=== PATIENT | male | born 1955 | race African-American/Black ===

== ENCOUNTER 2017-08-24 15:52 | Inpatient (IN) | payer OTHER ==
[2017-08-24 17:11] LABS: Absolute Lymphocytes (CBC) 0.8 K/uL (0.7-4.9); Absolute Monocytes 0.9 K/uL (0.1-1.3); Absolute Neutrophil 8.6 K/uL (1.8-8.0); Eosinophils % 0.5 % (0-4.4); Hematocrit 43.2 % (39.6-49.0); Lymphocytes % 7.6 % (15.3-44.8); MCH 28.2 pg (27.0-35.0); MCV 84.6 fL (80-100); MPV 10.4 fL (7.6-11.3); Monocytes % 9.1 % (3.3-12.3); RBC Red Blood Cell Count 5.11 M/uL (4.33-5.43)
[2017-08-24 17:21] LABS: Protime INR 1.05
[2017-08-24 17:22] LABS: Potassium 3.9 mEq/L (3.6-5.0)
--- NOTE | 2017-08-24 17:29 | RAD REPORT ---
EXAM DESCRIPTION: RAD - Chest Single View - 08/24/2017 5:23 pm CLINICAL HISTORY: Chest pain. COMPARISON: 07/28/2017 FINDINGS: Portable technique limits examination quality. The lungs are grossly clear. The heart is normal in size. No displaced fractures.Right-sided PICC mejia e has tip in the SVC. IMPRESSION: No acute intrathoracic process suspected.
[2017-08-24 17:30] LABS: Albumin 3.8 g/dL (3.2-5.5); Bilirubin Direct 0.2 mg/dL (0-0.2); Bilirubin Total 0.9 mg/dL (0.3-1.2); C-Reactive Protein 13.1 mg/L (<10.0); Protein, Total 7.6 g/dL (6.0-8.3)
[2017-08-24] MEDS ORDERED: NA CHLORIDE 0.9% 1,000 ML ONE (17:38)
[2017-08-24] MEDS ORDERED: PIPERACILLIN-TAZO-DEXTROSE,ISO 3.375 GM/50 ML BAG ONE (17:38)
[2017-08-24] MEDS ORDERED: ACETAMINOPHEN 500 MG TAB ONE (17:38)
--- NOTE | 2017-08-24 18:02 | P.HP ---
Certification for Inpatient Patient admitted to: Inpatient With expected LOS: >2 Midnights Patient will require the following post-hospital care: None Practitioner: I am a practitioner with admitting privileges, knowledge of patient current condition, hospital course, and medical plan of care. Services: Services provided to patient in accordance with Admission requirements found in Title 42 Section 412.3 of the Code of Federal Regulations Patient History Date of Service: 08/24/17 Primary Care Provider: Dr Jc - Surgery Reason for admission: Fever History of Present Illness: This is a 61-year-old male with significant past medical history of diabetes, high blood pressure, cholesterol, chronic diabetic foot ulcers who presented to the ED complaining of having some fever and chills at home. Patient stated that he was at the [facility] when he was told that he needs to go get an MRI of his foot but started feeling unwell and thus decided to come to the ER. In the ER patient was found to have a fever and tachycardia and thus was referred for an admission for sepsis workup. Patient states that at home he has been having fever noted temperature of 101.6. Of note patient has been on IV vancomycin for osteomylitis for total of 12 weeks. Initially he was at [facility] for 6 weeks and then was discharged home with another 6 weeks of IV antibiotics. Patient has been having some coughing as well along with phlegm production which is clear in color. Aside from fever and chills patient does not have any other associated symptoms at this time. Allergies No Known Allergies Allergy (Verified 05/26/17 09:08) Home Medications: Metformin HCl [Glucophage*] 2 tab PO BID 08/03/13 Allopurinol [Zyloprim*] 1 tab PO DAILY 04/19/15 Amlodipine/Valsartan [Exforge 10-320 mg Tablet] 1 tab PO DAILY 04/19/15 Atorvastatin Calcium [Lipitor*] 1 tab PO DAILY 04/19/15 - Past Medical/Surgical History Diabetic: Yes -: Diabetes -: HTN -: High Cholesterol - Social History Alcohol use: Yes Review of Systems General: As per HPI Physical Examination - Physical Exam General: Alert, In no apparent distress, Oriented x3 HEENT: Atraumatic, PERRLA, Mucous membr. moist/pink, EOMI, Sclerae nonicteric Neck: Supple, 2+ carotid pulse no bruit, No LAD, Without JVD or thyroid abnormality Respiratory: Normal air movement, Inspiratory wheezes, Rhonchi/gurgles Cardiovascular: Regular rate/rhythm, Normal S1 S2 Gastrointestinal: Normal bowel sounds, No tenderness Musculoskeletal: Erythema Integumentary: Diabetic ulcer (Left Foot and 2nd Toe and Right foot ) Neurological: Normal speech, Normal strength at 5/5 x4 extr, Normal tone, Normal affect Lymphatics: No axilla or inguinal lymphadenopathy - Studies Laboratory Data (last 24 hrs) 08/24/17 14:45: PT 12.4, INR 1.05, APTT 25.6 08/24/17 14:45: WBC 10.5, Hgb 14.4, Hct 43.2, Plt Count 159 08/24/17 14:45: B-Natriuretic Peptide 44 08/24/17 14:45: Sodium 135, Potassium 3.9, BUN 19, Creatinine 1.30 H, Glucose 137 H, Total Bilirubin 0.9, AST 61 H, ALT 35, Alkaline Phosphatase 99, Lipase 28 Assessment and Plan - Problems (Diagnosis) (1) Sepsis Current Visit: Yes Status: Acute Plan: Sepsis Most likely 2.2 to PICC line infection Vs Osteomylitis vs PNA -Started on IV vanc and zosyn -Culture pending -ID consulted. Await Reccs -Wound care for Ulcers -Will replace PICC line Qualifiers: Sepsis type: sepsis due to unspecified organism Qualified Code(s): A41.9 - Sepsis, unspecified organism (2) Osteomyelitis Current Visit: No Status: Chronic Plan: Osteomylitis of the BL foot -Has been on IV vanc for 12 weeks now. -Will repeat the MRI today -Continue IV abx. (3) Diabetic ulcer of left great toe Current Visit: No Status: Chronic (4) Diabetic ulcer of right great toe Current Visit: No Status: Chronic (5) Diabetes mellitus type 2 Current Visit: No Status: Chronic (6) Essential hypertension Current Visit: No Status: Chronic (7) KINGS (acute kidney injury) Current Visit: Yes Status: Acute Plan: Most Likely 2/2 to dehydration vs IV Vanc. -IV fluids at this time. Discharge Plan: Home Plan to discharge in: 48 Hours - Advance Directives Does patient have a Living Will: No Does patient have a Durable POA for Healthcare: No - Code Status/Comfort Care Code Status Assessed: Yes Critical Care: No
--- NOTE | 2017-08-24 19:47 | ER ---
Nurse's Notes [facility] Name: Magnus Richards Age: 61 yrs Sex: Male : 1955 Arrival Date: 08/24/2017 Time: 15:56 Bed 8 Private MD: Diagnosis: Acute upper respiratory infection, unspecified;Fever, unspecified Presentation: 08/24 16:11 Presenting complaint: Patient states: wound care sent me over here, they think im ch septic or my picc line is infected. last night I didn't feel good, today i have been very weak, vomiting everything i eat, and just not feeling well. Transition of care: patient was not received from another setting of care. Onset of symptoms was August 23, 2017 at 15:00. Care prior to arrival: None. 16:11 Method Of Arrival: Wheelchair 16:11 Acuity: FARIDA 3 ch Historical: - Allergies: 16:14 tegaderm; ch - Home Meds: 16:14 allopurinol 100 mg Oral tab 1 tab once daily [Active]; Exforge 10-160 mg oral tab 1 tab ch once daily [Active]; atorvastatin 10 mg oral tab 1 tab once daily [Active]; metformin 500 mg Oral tab 1 tab 2 times per day [Active]; - PMHx: 16:14 Diabetes - NIDDM; chronic wounds; Hypertension; Gout; ch - PSHx: 16:14 foot, knee; ch - Immunization history:: Adult Immunizations up to date. - Social history:: Smoking status: Patient/guardian denies using tobacco. Screenin:04 Abuse screen: Denies threats or abuse. Denies injuries from another. Nutritional hb screening: No deficits noted. Tuberculosis screening: No symptoms or risk factors identified. Fall Risk None identified. Assessment: 16:45 General: Appears in no apparent distress. Behavior is calm, cooperative. Pain: Denies hb pain. Neuro: Level of Consciousness is awake, alert, obeys commands, Oriented to person, place, time, situation, Pupils are PERRLA. Cardiovascular: Heart tones S1 S2 present Capillary refill < 3 seconds Patient's skin is warm and dry. Respiratory: Airway is patent Trachea midline Respiratory effort is even, unlabored, Respiratory pattern is regular, symmetrical, Breath sounds are clear bilaterally. GI: Abdomen is non-distended, Bowel sounds present X 4 quads. Abd is soft and non tender X 4 quads. Reports nausea, vomiting. : No signs and/or symptoms were reported regarding the genitourinary system. EENT: No signs and/or symptoms were reported regarding the EENT system. Derm: No signs and/or symptoms reported regarding the dermatologic system. Skin temperature is warm Wound noted Other: chronic diabetic ulcers to bilateral soles of feet. Musculoskeletal: Range of motion: intact in all extremities. 17:45 Reassessment: Patient appears in no apparent distress at this time. No changes from hb previously documented assessment. Patient and/or family updated on plan of care and expected duration. Pain level reassessed. Patient is alert, oriented x 3, equal unlabored respirations, skin warm/dry/pink. 18:38 Reassessment: Patient appears in no apparent distress at this time. No changes from hb previously documented assessment. Patient and/or family updated on plan of care and expected duration. Pain level reassessed. Patient is alert, oriented x 3, equal unlabored respirations, skin warm/dry/pink. 19:00 General: Appears in no apparent distress. Behavior is calm, cooperative. Pain: Denies ea pain. Neuro: Level of Consciousness is awake, alert, obeys commands, Oriented to person, place, time, situation. Cardiovascular: Heart tones S1 S2 present Patient's skin is warm and dry. Respiratory: Airway is patent Respiratory effort is even, unlabored, Respiratory pattern is regular, symmetrical, Breath sounds are clear bilaterally. GI: Abdomen is non-distended, Bowel sounds present X 4 quads. Abd is soft and non tender X 4 quads. Reports nausea, vomiting, since this AM. : No signs and/or symptoms were reported regarding the genitourinary system. EENT: No signs and/or symptoms were reported regarding the EENT system. Derm: Skin temperature is warm Wound noted Other: chronic diabetic ulcers to tk soles of feet. 20:42 Reassessment: Patient and/or family updated on plan of care and expected duration. Pain ea level reassessed. Patient is alert, oriented x 3, equal unlabored respirations, skin warm/dry/pink. 21:15 Reassessment: Patient and/or family updated on plan of care and expected duration. Pain ea level reassessed. Patient is alert, oriented x 3, equal unlabored respirations, skin warm/dry/pink. 22:16 Reassessment: Patient and/or family updated on plan of care and expected duration. Pain ea level reassessed. Patient is alert, oriented x 3, equal unlabored respirations, skin warm/dry/pink. 22:29 Reassessment: Patient and/or family updated on plan of care and expected duration. Pain ea level reassessed. Patient is alert, oriented x 3, equal unlabored respirations, skin warm/dry/pink. Report given to receiving nurse on fourth floor. Vital Signs: 16:14 BP 110 / 76; Pulse 139; Resp 22; Temp 101.1; Pulse Ox 96% on R/A; Weight 128.37 kg; ch Height 6 ft. 3 in. (190.50 cm); Pain 6/10; 17:00 BP 112 / 80; Pulse 122; Resp 18; Pulse Ox 97% on R/A; hb 18:00 BP 114 / 80; Pulse 118; Resp 16; Pulse Ox 98% on R/A; hb 18:40 Temp 99.9(O); hb 19:14 BP 109 / 75; Pulse 111; Resp 20 S; Pulse Ox 98% on R/A; Pain 0/10; ea 20:43 BP 131 / 100; Pulse 116; Resp 18 S; Pulse Ox 98% on R/A; Pain 0/10; ea 21:00 BP 118 / 78; Pulse 98; Resp 18; Pulse Ox 100% on R/A; Pain 0/10; ea 22:00 BP 123 / 84; Pulse 105; Resp 18 S; Pulse Ox 100% on R/A; Pain 0/10; ea 22:30 BP 122 / 79; Pulse 100; Resp 19 S; Temp 98.9(O); Pulse Ox 100% ; Pain 0/10; ea 16:14 Body Mass Index 35.37 (128.37 kg, 190.50 cm) ED Course: 15:56 Patient arrived in ED. sb2 16:08 Juan Huerta MD is Attending Physician. kdr 16:12 Triage completed. ch 16:14 Arm band placed on left wrist. Patient placed in an exam room, on a stretcher. ch 16:20 Suzette Mchugh, SEBASTIAN is Primary Nurse. hb 16:45 Patient has correct armband on for positive identification. Placed in gown. Bed in low hb position. Call light in reach. Side rails up X 1. surveillance monitor on. Pulse ox on. NIBP on. 16:45 Accessed PICC line. Clean \T\ dry. Dressing intact. Good blood return. Flushes easily. hb 16:45 Initial lab(s) drawn, by me, sent to lab. First set of blood cultures drawn. hb 16:45 Flu and/or RSV swab sent to lab. Strep swab sent to lab. hb 17:21 X-ray completed. Portable x-ray completed in exam room. Patient tolerated procedure ml well. 17:24 Chest Single View XRAY In Process Unspecified. EDMS 19:40 Patient moved to [facility] via wheelchair. ka 19:46 Sylvia Leonard MD is Hospitalizing Provider. kdr 20:35 Patient moved back from [facility]. ka 20:37 Foot Left Wo Cont In Process Unspecified. EDMS 20:37 Foot Right Wo Cont In Process Unspecified. EDMS 22:16 No provider procedures requiring assistance completed. ea 22:31 Patient admitted, IV remains in place. ea Administered Medications: 17:43 Drug: Zosyn 3.375 grams Route: IVPB; Infused Over: 60 mins; Site: PICC; hb 19:00 Follow up: Response: No adverse reaction; IV Status: Completed infusion ea 17:43 Drug: NS 0.9% 1000 ml Route: IV; Rate: 1 bolus; Site: PICC; hb 19:00 Follow up: Response: No adverse reaction; IV Status: Completed infusion ea 17:43 Drug: Tylenol 1000 mg Route: PO; hb 18:30 Follow up: Response: No adverse reaction hb Point of Care Testing: Blood Glucose: 17:16 Blood Glucose: 112 mg/dL; hb Ranges: Outcome: 19:47 Decision to Hospitalize by Provider. kdr 20:00 Instructed on the need for admit. johan 22:32 Admitted to Med/surg accompanied by nurse, via wheelchair, room 425, Report called to johan Candelaria RN 22:32 Condition: stable 22:34 Patient left the ED. ea Signatures: Dispatcher [employer] EDID Miriam Miguel RN RN ch Rittger, Kevin, MD MD kdr Lopez, Melissa ml Aguilera, Katelyn ka Baxter, Heather, RN RN Johnson, Carmen, RN RN ea Billeau, Laney sb2
--- NOTE | 2017-08-24 19:47 | EDPHYS ---
Physician Documentation [facility] Name: Magnus Richards Age: 61 yrs Sex: Male : 1955 Arrival Date: 08/24/2017 Time: 15:56 Bed 8 Private MD: ED Physician Juan Huerta HPI: 08/24 21:48 This 61 yrs old Black Male presents to ER via Wheelchair with complaints of Vomiting, kdr Fever. 21:49 The patient was feeling poorly yesterday and today, he began to vomit and feel kdr feverish. He did not measure a fever at home. He states that he is concerned that his PIC line might be infected . Onset: The symptoms/episode began/occurred yesterday. Severity of symptoms: At their worst the symptoms were mild just prior to arrival, in the emergency department the symptoms are unchanged. The patient has not experienced similar symptoms in the past. The patient has been recently seen by a physician:. Historical: - Allergies: 16:14 tegaderm; ch - Home Meds: 16:14 allopurinol 100 mg Oral tab 1 tab once daily [Active]; Exforge 10-160 mg oral tab 1 tab ch once daily [Active]; atorvastatin 10 mg oral tab 1 tab once daily [Active]; metformin 500 mg Oral tab 1 tab 2 times per day [Active]; - PMHx: 16:14 Diabetes - NIDDM; chronic wounds; Hypertension; Gout; ch - PSHx: 16:14 foot, knee; ch - Immunization history:: Adult Immunizations up to date. - Social history:: Smoking status: Patient/guardian denies using tobacco. ROS: 21:49 Constitutional: Negative for chills, and weight loss - he has had subjective fever kdr Eyes: Negative for injury, pain, redness, and discharge, ENT: Negative for injury, pain, and discharge, Neck: Negative for injury, pain, and swelling, Cardiovascular: Negative for chest pain, palpitations, and edema, Abdomen/GI: Negative for abdominal pain, nausea, vomiting, diarrhea, and constipation, Back: Negative for injury and pain, : Negative for injury, bleeding, discharge, and swelling, MS/Extremity: Negative for injury and deformity, Skin: Negative for injury, rash, and discoloration, Neuro: Negative for headache, weakness, numbness, tingling, and seizure activity. Psych: Negative for depression, anxiety, suicide ideation, homicidal ideation, and hallucinations, Allergy/Immunology: Negative for hives, rash, and allergies, Endocrine: Negative for neck swelling, polydipsia, polyuria, polyphagia, and marked weight changes, Hematologic/Lymphatic: Negative for swollen nodes, abnormal bleeding, and unusual bruising. 21:49 Respiratory: Positive for cough, with clear sputum, dyspnea on exertion, shortness of breath, Negative for hemoptysis, orthopnea, pleurisy. 21:49 MS/extremity: Positive for Healing wounds on the bottom of both feet. Exam: 21:49 Constitutional: This is a well developed, well nourished patient who is awake, alert, kdr and in very mild distress. Head/Face: Normocephalic, atraumatic. Eyes: Pupils equal round and reactive to light, extra-ocular motions intact. Lids and lashes normal. Conjunctiva and sclera are non-icteric and not injected. Cornea within normal limits. Periorbital areas with no swelling, redness, or edema. Neck: Trachea midline, no thyromegaly or masses palpated, and no cervical lymphadenopathy. Supple, full range of motion without nuchal rigidity, or vertebral point tenderness. No Meningismus. Chest/axilla: Normal chest wall appearance and motion. Nontender with no deformity. No lesions are appreciated. Abdomen/GI: Soft, non-tender, with normal bowel sounds. No distension or tympany. No guarding or rebound. No evidence of tenderness throughout. Back: No spinal tenderness. No costovertebral tenderness. Full range of motion. Skin: Warm, dry with normal turgor. Normal color with no rashes, no lesions, and no evidence of cellulitis. MS/ Extremity: Pulses equal, no cyanosis. Neurovascular intact. Full, normal range of motion. Neuro: Awake and alert, GCS 15, oriented to person, place, time, and situation. Cranial nerves II-XII grossly intact. Motor strength 5/5 in all extremities. Sensory grossly intact. Cerebellar exam normal. Normal gait. Psych: Awake, alert, with orientation to person, place and time. Behavior, mood, and affect are within normal limits. 21:49 Cardiovascular: Rate: tachycardic, Rhythm: regular, Pulses: no pulse deficits are appreciated, Edema: is not appreciated. 21:49 Respiratory: the patient does not display signs of respiratory distress, Respirations: normal, Breath sounds: rales, rhonchi, that are mild. Vital Signs: 16:14 BP 110 / 76; Pulse 139; Resp 22; Temp 101.1; Pulse Ox 96% on R/A; Weight 128.37 kg; ch Height 6 ft. 3 in. (190.50 cm); Pain 6/10; 17:00 BP 112 / 80; Pulse 122; Resp 18; Pulse Ox 97% on R/A; hb 18:00 BP 114 / 80; Pulse 118; Resp 16; Pulse Ox 98% on R/A; hb 18:40 Temp 99.9(O); hb 19:14 BP 109 / 75; Pulse 111; Resp 20 S; Pulse Ox 98% on R/A; Pain 0/10; ea 20:43 BP 131 / 100; Pulse 116; Resp 18 S; Pulse Ox 98% on R/A; Pain 0/10; ea 21:00 BP 118 / 78; Pulse 98; Resp 18; Pulse Ox 100% on R/A; Pain 0/10; ea 22:00 BP 123 / 84; Pulse 105; Resp 18 S; Pulse Ox 100% on R/A; Pain 0/10; ea 22:30 BP 122 / 79; Pulse 100; Resp 19 S; Temp 98.9(O); Pulse Ox 100% ; Pain 0/10; ea 16:14 Body Mass Index 35.37 (128.37 kg, 190.50 cm) ch MDM: 19:47 Patient medically screened. kdr 21:49 Data reviewed: vital signs, nurses notes, lab test result(s), radiologic studies. kdr Counseling: I had a detailed discussion with the patient and/or guardian regarding: the historical points, exam findings, and any diagnostic results supporting the discharge/admit diagnosis, lab results, radiology results, the need for further work-up and treatment in the hospital. 08/24 16:48 Order name: Basic Metabolic Panel; Complete Time: 19:47 kdr 08/24 16:48 Order name: Blood Culture Adult (2) kdr 08/24 16:48 Order name: BNP; Complete Time: 19:47 kdr 08/24 16:48 Order name: C-Reactive Protein; Complete Time: 19:47 kdr 08/24 16:48 Order name: CBC with Diff; Complete Time: 19:47 kdr 08/24 16:48 Order name: Lactate; Complete Time: 19:47 kdr 08/24 16:48 Order name: LFT's; Complete Time: 19:47 kdr 08/24 16:48 Order name: Lipase; Complete Time: 19:47 kdr 08/24 16:48 Order name: Procalcitonin; Complete Time: 19:47 kdr 08/24 16:48 Order name: Protime (+inr); Complete Time: 19:47 kdr 08/24 16:48 Order name: Ptt, Activated; Complete Time: 19:47 kdr 08/24 16:48 Order name: Sed Rate; Complete Time: 19:47 kdr 08/24 16:48 Order name: Troponin (emerg Dept Use Only); Complete Time: 19:47 kdr 08/24 17:54 Order name: Wound Culture EDMS 08/24 16:48 Order name: Chest Single View XRAY; Complete Time: 19:47 kdr 08/24 16:48 Order name: Accucheck; Complete Time: 17:16 kdr 08/24 16:48 Order name: Cardiac monitoring; Complete Time: 17:05 kdr 08/24 16:48 Order name: EKG - Nurse/Tech; Complete Time: 17:53 kdr 08/24 16:48 Order name: IV Saline Lock - Large Bore; Complete Time: 17:05 kdr 08/24 16:48 Order name: Labs collected and sent; Complete Time: 17:05 kdr 08/24 16:48 Order name: O2 Per Protocol; Complete Time: 17:05 kdr 08/24 16:48 Order name: O2 Sat Monitoring; Complete Time: 17:05 kdr 08/24 18:32 Order name: Foot Left Wo Cont; Complete Time: 22:41 EDMS 08/24 18:32 Order name: Foot Right Wo Cont; Complete Time: 22:41 EDMS Administered Medications: 17:43 Drug: Zosyn 3.375 grams Route: IVPB; Infused Over: 60 mins; Site: PICC; hb 19:00 Follow up: Response: No adverse reaction; IV Status: Completed infusion ea 17:43 Drug: NS 0.9% 1000 ml Route: IV; Rate: 1 bolus; Site: PICC; hb 19:00 Follow up: Response: No adverse reaction; IV Status: Completed infusion ea 17:43 Drug: Tylenol 1000 mg Route: PO; hb 18:30 Follow up: Response: No adverse reaction hb Point of Care Testing: Blood Glucose: 17:16 Blood Glucose: 112 mg/dL; hb Ranges: Critical Glucose Levels:Adult <50 mg/dl or >400 mg/dl <40 mg/dl or >180 mg/dl Disposition: 08/24/17 19:47 Hospitalization ordered by Sylvia Leonard for Inpatient Admission. Preliminary diagnosis are Acute upper respiratory infection, unspecified, Fever, unspecified. - Bed requested for Telemetry/MedSurg (Inpatient). - Status is Inpatient Admission. ea - Condition is Fair. - Problem is new. - Symptoms have improved. UTI on Admission? No Signatures: Dispatcher [employer] EDMiriam Arthur RN RN ch Lewis, Kimberly, RN RN Juan Huerta MD MD [facility] Suzette Mchugh RN RN hb Antunez, Elena, RN RN ea Corrections: (The following items were deleted from the chart) 18:28 17:54 MRA Foot Bilateral ordered. EDMS EDMS 18:32 18:08 MRA Lower Ext Wo Cont ordered. EDMS EDMS
[2017-08-24] MEDS ORDERED: CLINDAMYCIN 600MG/D5W 600 MG/50 ML BAG IV ONE (19:54)
--- NOTE | 2017-08-24 21:14 | RAD REPORT ---
EXAM DESCRIPTION: MRI - Foot Left Wo Cont - 08/24/2017 8:35 pm CLINICAL HISTORY: Osteomyelitis, patient history of infected wound of the first toe COMPARISON: MRI April 2015 TECHNIQUE: Multiplanar imaging the left foot performed using T1 weighted, T2 weighted, T2 STIR T2 fa t saturation sequencing. FINDINGS: There is extensive hypointense T1 and hyperintense T2 signal in the base of the first prox imal phalanx. There has been some remodeling change near the base probably from prior infection or in jury. First distal phalanx shows abnormal marrow signal pattern. No sushant cortical disruption seen. T here is edema signal in the sesamoid bones plantar aspect of the first MTP joint. Only a trace amount of hypointense T1 and hyperintense T2 signal present in the first metatarsal head. The second- fifth toes and metatarsals show no acute or suspicious finding. Significant edematous/ inflammatory signal is present in the soft tissues on the medial and plantar a spect of the distal first metatarsal, MTP joint and proximal first phalanx. No abscess or drainable f luid collection. IMPRESSION: Osteomyelitis involving the first proximal phalanx. There may be some minimal or very early osteomyelitis in the first metatarsal head. No abscess or drainable fluid collection. There is significant infectious/ inflammatory tissue along the medial and plantar aspects of the first MTP joint region.
--- NOTE | 2017-08-24 21:20 | RAD REPORT ---
EXAM DESCRIPTION: MRI - Foot Right Wo Cont - 08/24/2017 8:37 pm CLINICAL HISTORY: S06.0X0A COMPARISON: MRI June 30, 2017 TECHNIQUE: Multiplanar imaging of the right foot performed using T1 weighted, T2 fat saturation, T1 fat saturation and T2 stir sequencing. FINDINGS: Hypointense T1 and hyperintense T2 signal is present in the first metatarsal head similar to the comparison. The 10 millimeter area of osteonecrosis or subcortical degenerative cystic changes stable from prior imaging. There is extensive signal abnormality throughout the proximal and distal first phalanges. There is bone destruction at the base of the distal phalanx and head of the proximal phalanx with distorted joint space. No abscess or drainable fluid collection. The advanced osteomyel itis destructive changes in this region are not substantially different from June. Patchy hypointense T1 and hyperintense T2 signal present in the head of the second metatarsal and bas e of the second proximal phalanx. Advanced degenerative changes are present at this joint space is we ll. This could be prominent active degenerative change or early osteomyelitis. No joint effusion at t he second MTP joint. No abscess or drainable fluid collection. IMPRESSION: Bone destructive osteomyelitis changes involving the first proximal and distal phalanges with osteomyelitis or advanced degenerative changes to the first metatarsal head. Advanced degenerative change involves the second metatarsal head and second proximal phalanx is well is the second MTP joint. This could be active prominent degenerative change or early osteomyelitis. The first and second toe and metatarsal findings are not substantially different from June.
[2017-08-24] MEDS: INSULIN -REGULAR HUMAN 50 UNIT/0.5 ML ML SQ SCH (22:39)
[2017-08-24] MEDS: PIPER/TAZO/NS 3.375gm 3.375 GM/100 ML BAG IVPB SCH (22:39)
[2017-08-24] MEDS ORDERED: VANCOMYCIN 2 GM in NA CHLORIDE 0.9% 500 ML IVPB SCH (22:39)
[2017-08-24] MEDS ORDERED: ONDANSETRON 4 MG (ODT) TAB PO PRN (22:39)
[2017-08-25] MEDS: NA CHLORIDE 0.9% 1,000 ML IV SCH ×3 (00:02→18:39)
[2017-08-25] MEDS ORDERED: VANCOMYCIN/NS 1 gm 2 GM/500 ML BAG ONE (00:05)
[2017-08-25 04:25] LABS: Absolute Monocytes 1.2 K/uL (0.1-1.3); Absolute Neutrophil 7.5 K/uL (1.8-8.0); Basophils % 0.9 % (0-1.3); Eosinophils % 1.1 % (0-4.4); Hematocrit 34.9 % (39.6-49.0); Lymphocytes % 18.6 % (15.3-44.8); MCH 28.1 pg (27.0-35.0); MCV 84.1 fL (80-100); MPV 10.2 fL (7.6-11.3); Monocytes % 10.5 % (3.3-12.3); RBC Red Blood Cell Count 4.14 M/uL (4.33-5.43)
[2017-08-25 04:43] LABS: Albumin 3.4 g/dL (3.2-5.5); Protein, Total 6.8 g/dL (6.0-8.3)
[2017-08-25 04:59] LABS: Magnesium 1.6 mg/dL (1.8-2.5); Phosphorus 3.5 mg/dL (2.5-4.3)
[2017-08-25] MEDS ORDERED: MAGNESIUM SULFATE 1 gm IVPB 1 GM/100 ML BAG IV ONE (06:27)
[2017-08-25] MEDS: INSULIN -REGULAR HUMAN 50 UNIT/0.5 ML ML SQ SCH ×4 (07:30→20:13)
--- NOTE | 2017-08-25 07:59 | EKG ---
Test Date: 2017-08-24 Test Time: 16:49:54 Banquet Houseperson: ANDRÉS MEASUREMENT RESULTS: Intervals: Rate: 124 NM: 128 QRSD: 84 QT: 310 QTc: 445 [place]: P: 9 NM: 128 QRS: -37 T: 12 INTERPRETIVE STATEMENTS: Sinus tachycardia Left axis deviation Abnormal ECG No previous ECG available for comparison Electronically Signed On 08-25-17 07:58:49 CDT by Juan Muhammad
[2017-08-25] MEDS ORDERED: INFLUENZA VACCINE (for 5y+) 0.5 ML DOSE IMVAC ONE (08:00)
[2017-08-25] MEDS: PIPER/TAZO/NS 3.375gm 3.375 GM/100 ML BAG IVPB SCH ×2 (09:32→21:15)
[2017-08-25] MEDS: ENOXAPARIN 40 MG/0.4 ML SQ SCH (09:33)
--- NOTE | 2017-08-25 13:42 | P.PN ---
Subjective Date of Service: 08/25/17 Primary Care Provider: Dr Jc - Surgery Chief Complaint: Fever Subjective: Tolerating diet, Improving, Working w/ PT, Doing well Review of Systems 10-point ROS is otherwise unremarkable Physical Examination - Vital Signs Temperature: 99.2 F Blood Pressure: 127/75 Pulse: 97 Respirations: 18 Pulse Ox (%): 97 - Physical Exam General: Alert, In no apparent distress, Oriented x3 HEENT: Atraumatic, PERRLA, EOMI Neck: Supple, JVD not distended Respiratory: Clear to auscultation bilaterally, Normal air movement Cardiovascular: Regular rate/rhythm, Normal S1 S2 Gastrointestinal: Normal bowel sounds, No tenderness Musculoskeletal: No tenderness Integumentary: Skin lesion, Erythema, Diabetic ulcer Neurological: Normal speech, Normal tone, Normal affect Lymphatics: No axilla or inguinal lymphadenopathy - Studies Laboratory Data (last 24 hrs) 08/24/17 14:45: PT 12.4, INR 1.05, APTT 25.6 08/24/17 14:45: WBC 10.5, Hgb 14.4, Hct 43.2, Plt Count 159 08/24/17 14:45: B-Natriuretic Peptide 44 08/24/17 14:45: Sodium 135, Potassium 3.9, BUN 19, Creatinine 1.30 H, Glucose 137 H, Total Bilirubin 0.9, AST 61 H, ALT 35, Alkaline Phosphatase 99, Lipase 28 Microbiology Data (last 24 hrs): 08/24/17 18:30 Wound - Left Foot Gram Stain - Final Medications List Reviewed: Yes Assessment & Plan - Problems (Diagnosis) (1) Sepsis Onset Date: 08/25/17 Current Visit: Yes Status: Acute Plan: Sepsis Most likely 2.2 to PICC line infection Vs Osteomylitis vs PNA -Started on IV vanc and zosyn -Culture pending -Surgery Consulted. Appreciated Reccs -ID consulted. Appreciated Reccs. -Wound care for Ulcers -PICC line removed. Qualifiers: Sepsis type: sepsis due to unspecified organism Qualified Code(s): A41.9 - Sepsis, unspecified organism (2) Osteomyelitis Onset Date: 08/25/17 Current Visit: Yes Status: Chronic Plan: Osteomylitis of the BL foot -Has been on IV vanc for 12 weeks now. -MRI with osteomylitis -Continue IV abx. (3) Diabetic ulcer of left great toe Onset Date: 08/25/17 Current Visit: Yes Status: Chronic (4) Diabetic ulcer of right great toe Onset Date: 08/25/17 Current Visit: Yes Status: Chronic (5) Diabetes mellitus type 2 Onset Date: 08/25/17 Current Visit: Yes Status: Chronic (6) Essential hypertension Onset Date: 08/25/17 Current Visit: Yes Status: Chronic (7) KINGS (acute kidney injury) Onset Date: 08/25/17 Current Visit: Yes Status: Acute Plan: Most Likely 2/2 to dehydration vs IV Vanc. -IV fluids at this time. Discharge Plan: Home Plan to discharge in: 72 Hours - Code Status/Comfort Care Code Status Assessed: Yes Critical Care: No
--- NOTE | 2017-08-25 14:34 | CON ---
Date of Consultation: 08/25/2017 Reason: Sepsis. History Of Present Illness: The patient is a 61-year-old gentleman well known to me from the [facility]. He had osteomyelitis with ulcer wound and managing chronically. He does have a PICC mejia e. Was being treated with IV antibiotics. However, he was supposed to get an MRI to be evaluated to see if he will qualify for HBO and at that time, he became ill having fever, feeling weak and temper ature was over 101, and he had fever and tachycardia and he was sent to the emergency room. Was admi tted with sepsis. The most likely source of sepsis is the PICC line. I was consulted for continued wound care. Review of Systems: Otherwise unremarkable. Past Medical History: Significant for diabetes and high blood pressure, high cholesterol, chronic di abetic foot ulcers. Past Surgical History: Negative. Allergies: INCLUDE TEGADERM. Social History: He denies smoking or drinking. Family History: Noncontributory. Physical Examination: Vital Signs: Stable. Currently afebrile. He is awake, alert, and oriented x3. Head and Neck: Cranial nerves 2 through 12 are grossly within normal limits. No neck masses. No JV D. Throat clear. Neck is supple. Chest: Clear. Heart: S1, S2. Abdomen: Soft. Extremity: Diminished dorsalis pedis and posterior tibial pulses. On examination of the foot, he marshall s a left plantar great toe wound, grade 2. Wound measurement is 1.2 x 0.1 x 0.4 cm undermining at th e 12 o'clock, 2.2 cm. There is an another grade 3 wound measurement on the left plantar foot 2.2 x 0 .7 x 0.7 with a 0.02 cm undermining, and right great toe there is a grade 2 diabetic foot ulcer. Wou nd measurement is 0.4 x 0.3 x 0.3 cm. He had a lot of hypertrophic skin around the edges and I had d ebrided him last . There is no purulent discharge. Imaging: MRI reviewed with the radiologist. On the right foot, there is bone destructive osteomyeli tis changes involving the first proximal and distal phalanx with advanced degenerative changes to the first metatarsal head, second proximal phalanx as well in the second metatarsophalangeal joint. Thi s could be active primary degenerative change or early osteomyelitis. The first and second toe findi ngs are not substantially different from June. On the left foot, there is osteomyelitis involving the first proximal phalanx and there may be some in the first metatarsal head. There is no abscess or drainable fluid. Laboratory Data: White count is 11,000. INR is 1.05. Assessment: Sepsis with bilateral lower extremity wounds with osteomyelitis. Recommendation: Continue wound care as ordered. I recommend that we remove the PICC line, culture t he tip and place a new one after 24 to 48 hours, and we will follow the patient as an outpatient. We will await Infectious Disease recommendations, but I do think the patient would benefit from hyperba shira oxygen therapy pending insurance approval. As the patient is very functional, we would like to d o a limb salvage as much as possible. Should all conservative measures fail, the obvious next step w ould be a transmetatarsal amputation of both great toes. HEIDI/MARICRUZ Voice ID: [id number] Report ID: [id number]
[2017-08-25] MEDS: VANCOMYCIN 2 GM in NA CHLORIDE 0.9% 500 ML IVPB SCH (17:18)
[2017-08-25] MEDS: ATORVASTATIN 10 MG TAB PO SCH (21:14)
[2017-08-26] MEDS: NA CHLORIDE 0.9% 1,000 ML IV SCH ×2 (01:20→04:09)
[2017-08-26 06:11] LABS: Absolute Lymphocytes (CBC) 1.7 K/uL (0.7-4.9); Absolute Monocytes 0.9 K/uL (0.1-1.3); Absolute Neutrophil 3.4 K/uL (1.8-8.0); Basophils % 2.2 % (0-1.3); Eosinophils % 4.7 % (0-4.4); Hematocrit 33.2 % (39.6-49.0); Lymphocytes % 26.2 % (15.3-44.8); MCH 28.1 pg (27.0-35.0); MCV 84.1 fL (80-100); MPV 11.1 fL (7.6-11.3); Monocytes % 14.4 % (3.3-12.3); RBC Red Blood Cell Count 3.94 M/uL (4.33-5.43)
[2017-08-26 06:31] LABS: Albumin 3.1 g/dL (3.2-5.5); Potassium 4.1 mEq/L (3.6-5.0); Protein, Total 6.2 g/dL (6.0-8.3)
[2017-08-26 06:34] LABS: Magnesium 1.7 mg/dL (1.8-2.5); Phosphorus 4.1 mg/dL (2.5-4.3)
[2017-08-26] MEDS: INSULIN -REGULAR HUMAN 50 UNIT/0.5 ML ML SQ SCH ×4 (07:30→20:40)
[2017-08-26] MEDS ORDERED: MAGNESIUM SULFATE 1 gm IVPB 1 GM/100 ML BAG IV ONE (08:00)
[2017-08-26] MEDS: AMLODIPINE 10 MG TAB PO SCH (08:59)
[2017-08-26] MEDS: hydroCHLOROthiazide 25 MG TAB PO SCH (08:59)
[2017-08-26] MEDS: ENOXAPARIN 40 MG/0.4 ML SQ SCH (08:59)
[2017-08-26] MEDS: ALLOPURINOL 100 MG TAB PO SCH (08:59)
[2017-08-26] MEDS ORDERED: AMLODIPINE PO SCH (09:00)
[2017-08-26] MEDS: COLLAGENASE 30 GM OINTMENT TOP SCH (09:00)
[2017-08-26] MEDS ORDERED: VALSARTAN PO SCH (09:00)
[2017-08-26] MEDS: VALSARTAN 160 MG TAB PO SCH (09:03)
[2017-08-26] MEDS: PIPER/TAZO/NS 3.375gm 3.375 GM/100 ML BAG IVPB SCH (09:04)
[2017-08-26] MEDS: Meropenem 1,000 MG in NA CHLORIDE 0.9% 100 ML IV SCH ×2 (12:30→17:16)
--- NOTE | 2017-08-26 13:03 | P.PN ---
Subjective Date of Service: 08/26/17 Primary Care Provider: Dr Jc - Surgery Chief Complaint: Fever Patient seen and examined at bedside with RN. Chart reviewed. Case discussed with general surgery and ID at this time. Patient is growing Enterobacter in the wound and Gram negative rods in the blood and the catheter tip. Review of Systems 10-point ROS is otherwise unremarkable Physical Examination - Vital Signs Temperature: 97.5 F Blood Pressure: 127/81 Pulse: 93 Respirations: 18 Pulse Ox (%): 92 - Physical Exam General: Alert, In no apparent distress, Oriented x3 HEENT: Atraumatic, PERRLA, EOMI Neck: Supple, JVD not distended Respiratory: Clear to auscultation bilaterally, Normal air movement Cardiovascular: Regular rate/rhythm, Normal S1 S2 Gastrointestinal: Normal bowel sounds, No tenderness Musculoskeletal: Tenderness Integumentary: Diabetic ulcer Neurological: Normal speech, Normal tone, Normal affect Lymphatics: No axilla or inguinal lymphadenopathy - Studies Microbiology Data (last 24 hrs): 08/24/17 18:30 Wound - Left Foot Gram Stain - Final 08/24/17 18:30 Wound - Left Foot Culture & Sensitivity - Final Enterobacter Cloacae Medications List Reviewed: Yes Assessment & Plan - Problems (Diagnosis) (1) Sepsis Onset Date: 08/25/17 Current Visit: Yes Status: Acute Plan: Sepsis Most likely 2.2 to PICC line infection Vs Osteomylitis vs PNA -Started on IV vanc and zosyn. Now switched to IV vanc and meropenum -Culture wound + for Enterobacter S to Meropenum -Surgery Consulted. Appreciated Reccs -ID consulted. Appreciated Reccs. -Wound care for Ulcers -PICC line removed. Qualifiers: Sepsis type: sepsis due to unspecified organism Qualified Code(s): A41.9 - Sepsis, unspecified organism (2) Osteomyelitis Onset Date: 08/25/17 Current Visit: Yes Status: Chronic Plan: Osteomylitis of the BL foot -Has been on IV vanc for 12 weeks now. -MRI with osteomylitis -Continue IV abx. (3) Diabetic ulcer of left great toe Onset Date: 08/25/17 Current Visit: Yes Status: Chronic (4) Diabetic ulcer of right great toe Onset Date: 08/25/17 Current Visit: Yes Status: Chronic (5) Diabetes mellitus type 2 Onset Date: 08/25/17 Current Visit: Yes Status: Chronic (6) Essential hypertension Onset Date: 08/25/17 Current Visit: Yes Status: Chronic (7) KINGS (acute kidney injury) Onset Date: 08/25/17 Current Visit: Yes Status: Acute Plan: Most Likely 2/2 to dehydration vs IV Vanc. -IV fluids at this time. Discharge Plan: Home Plan to discharge in: 24 Hours - Code Status/Comfort Care Code Status Assessed: Yes Critical Care: No
[2017-08-26] MEDS: VANCOMYCIN 2 GM in NA CHLORIDE 0.9% 500 ML IVPB SCH (13:59)
[2017-08-26] MEDS: ATORVASTATIN 10 MG TAB PO SCH (20:40)
[2017-08-27] MEDS: Meropenem 1,000 MG in NA CHLORIDE 0.9% 100 ML IV SCH ×3 (01:05→17:24)
[2017-08-27 02:02] LABS: Urine Appearance CLEAR; Urine Bilirubin NEGATIVE (NEG); Urine Blood NEGATIVE (NEG); Urine Color YELLOW; Urine Glucose NEGATIVE (NEG); Urine Protein NEGATIVE (NEG); Urine Urobilinogen 0.2 mg/dL (0.2-1.0); Urine pH 6.5 (5.0-7.0)
[2017-08-27 02:21] LABS: Urine Microscopic Reflex NO UMIC
[2017-08-27 05:32] LABS: Absolute Lymphocytes (CBC) 1.5 K/uL (0.7-4.9); Absolute Monocytes 0.9 K/uL (0.1-1.3); Absolute Neutrophil 3.5 K/uL (1.8-8.0); Basophils % 0.7 % (0-1.3); Eosinophils % 6.6 % (0-4.4); Hematocrit 34.5 % (39.6-49.0); Lymphocytes % 23.7 % (15.3-44.8); MCV 85.4 fL (80-100); MPV 11.7 fL (7.6-11.3); RBC Red Blood Cell Count 4.03 M/uL (4.33-5.43)
[2017-08-27 05:44] LABS: Albumin 3.2 g/dL (3.2-5.5); Potassium 4.4 mEq/L (3.6-5.0); Protein, Total 6.6 g/dL (6.0-8.3)
[2017-08-27 05:45] LABS: Bilirubin Total 0.7 mg/dL (0.3-1.2); Magnesium 1.9 mg/dL (1.8-2.5); Phosphorus 4.6 mg/dL (2.5-4.3)
[2017-08-27] MEDS: INSULIN -REGULAR HUMAN 50 UNIT/0.5 ML ML SQ SCH ×4 (07:30→21:00)
[2017-08-27] MEDS: VANCOMYCIN 2 GM in NA CHLORIDE 0.9% 500 ML IVPB SCH ×2 (08:18→23:33)
[2017-08-27] MEDS: ENOXAPARIN 40 MG/0.4 ML SQ SCH (09:38)
[2017-08-27] MEDS: VALSARTAN 160 MG TAB PO SCH (09:39)
[2017-08-27] MEDS: AMLODIPINE 10 MG TAB PO SCH (09:39)
[2017-08-27] MEDS: hydroCHLOROthiazide 25 MG TAB PO SCH (09:39)
[2017-08-27] MEDS: COLLAGENASE 30 GM OINTMENT TOP SCH (09:40)
[2017-08-27] MEDS: ALLOPURINOL 100 MG TAB PO SCH (09:40)
[2017-08-27] MEDS: ACETAMINOPHEN 500 MG TAB PO PRN (09:42)
--- NOTE | 2017-08-27 12:37 | P.PN ---
Subjective Date of Service: 08/27/17 Primary Care Provider: Dr Jc - Surgery Chief Complaint: Fever Patient seen and examined at bedside with RN. Chart reviewed. Case discussed with general surgery and ID at this time. Patient is growing Enterobacter in the wound and Pseudomonos in the blood and the catheter tip. Review of Systems General: As per HPI Physical Examination - Vital Signs Temperature: 98.5 F Blood Pressure: 127/71 Pulse: 93 Respirations: 18 Pulse Ox (%): 94 - Physical Exam General: Alert, In no apparent distress, Oriented x3 HEENT: Atraumatic, PERRLA, EOMI Neck: Supple, JVD not distended Respiratory: Clear to auscultation bilaterally, Normal air movement Cardiovascular: Regular rate/rhythm, Normal S1 S2 Gastrointestinal: Normal bowel sounds, Soft and benign, Non-distended, No tenderness Musculoskeletal: Erythema Integumentary: Diabetic ulcer Neurological: Normal speech, Normal tone, Normal affect Lymphatics: No axilla or inguinal lymphadenopathy - Studies Medications List Reviewed: Yes Assessment & Plan - Problems (Diagnosis) (1) Sepsis Onset Date: 08/25/17 Current Visit: Yes Status: Acute Plan: Sepsis Most likely 2.2 to PICC line infection and Osteomylitis. Pt has been on IV vanc for total of 12 weeks prior to this hospitalization. Last hospital visit he was sent to [facility] for 6 weeks of IV van for osteomylitis. At the end of 6 weeks pt developed PICC line infection and continued to have Osteomylitis. He had his 6 weeks of vanc extended to another 6 weeks and PICC line was replaced. Pt came back again at the end of 6 weeks with another PICC line infection and osteomylitis. -On IV vanc and meropenum -Culture wound + for Enterobacter to sensitive Meropenum in Wound and pseudomonos in PICC line sensitive to Meropenum. -Surgery Consulted. Appreciated Reccs -medical mgmt.. -ID consulted. Appreciated Reccs. -LTAC for 6 weeks of meropenum with wound care. -Wound care for Ulcers in hospital -PICC line removed. Will replace with another here in the hospital today. Dispo: Pt will benefit from close monitoring of his wound at a LTAC for another 6 weeks with meropenum and Wound care. In addition Pt's line infection rate can be decreased with daily care of PICC line at the LTAC facility as well. Pt will greatly benefit from LTAC at this time. Qualifiers: Sepsis type: sepsis due to unspecified organism Qualified Code(s): A41.9 - Sepsis, unspecified organism (2) Osteomyelitis Onset Date: 08/25/17 Current Visit: Yes Status: Chronic Plan: Osteomylitis of the BL foot -Has been on IV vanc for 12 weeks now. -MRI with osteomylitis -Continue IV abx. (3) Diabetic ulcer of left great toe Onset Date: 08/25/17 Current Visit: Yes Status: Chronic (4) Diabetic ulcer of right great toe Onset Date: 08/25/17 Current Visit: Yes Status: Chronic (5) Diabetes mellitus type 2 Onset Date: 08/25/17 Current Visit: Yes Status: Chronic (6) Essential hypertension Onset Date: 08/25/17 Current Visit: Yes Status: Chronic (7) KINGS (acute kidney injury) Onset Date: 08/25/17 Current Visit: Yes Status: Acute Plan: Most Likely 2/2 to dehydration vs IV Vanc. -IV fluids at this time. Discharge Plan: LTAC Plan to discharge in: 24 Hours - Code Status/Comfort Care Code Status Assessed: Yes Critical Care: No
[2017-08-27] MEDS: ATORVASTATIN 10 MG TAB PO SCH (20:49)
[2017-08-28] MEDS: Meropenem 1,000 MG in NA CHLORIDE 0.9% 100 ML IV SCH ×3 (01:29→17:19)
[2017-08-28] MEDS: INSULIN -REGULAR HUMAN 50 UNIT/0.5 ML ML SQ SCH ×4 (07:30→21:00)
[2017-08-28] MEDS: COLLAGENASE 30 GM OINTMENT TOP SCH (09:00)
[2017-08-28] MEDS: VALSARTAN 160 MG TAB PO SCH (09:24)
[2017-08-28] MEDS: ENOXAPARIN 40 MG/0.4 ML SQ SCH (09:24)
[2017-08-28] MEDS: AMLODIPINE 10 MG TAB PO SCH (09:25)
[2017-08-28] MEDS: ALLOPURINOL 100 MG TAB PO SCH (09:25)
[2017-08-28] MEDS: hydroCHLOROthiazide 25 MG TAB PO SCH (09:25)
--- NOTE | 2017-08-28 13:33 | P.PN ---
Subjective Date of Service: 08/28/17 Primary Care Provider: Dr Jc - Surgery Chief Complaint: Fever Patient seen and examined at bedside with RN. Chart reviewed. Case discussed with general surgery and ID at this time. Patient is growing Enterobacter in the wound and Pseudomonos in the blood and the catheter tip. Review of Systems General: As per HPI Physical Examination - Vital Signs Temperature: 97.9 F Blood Pressure: 136/86 Pulse: 103 Respirations: 18 Pulse Ox (%): 97 - Physical Exam General: Alert, In no apparent distress, Oriented x3 HEENT: Atraumatic, PERRLA, EOMI Neck: Supple, JVD not distended Respiratory: Clear to auscultation bilaterally, Normal air movement Cardiovascular: Regular rate/rhythm, Normal S1 S2 Gastrointestinal: Normal bowel sounds, No tenderness Musculoskeletal: No tenderness Integumentary: Skin lesion Neurological: Normal speech, Normal tone, Normal affect Lymphatics: No axilla or inguinal lymphadenopathy - Studies Medications List Reviewed: Yes Assessment & Plan - Problems (Diagnosis) (1) Sepsis Onset Date: 08/25/17 Current Visit: Yes Status: Acute Plan: Sepsis Most likely 2.2 to PICC line infection and Osteomylitis. Pt has been on IV vanc for total of 12 weeks prior to this hospitalization. Last hospital visit he was sent to [facility] for 6 weeks of IV van for osteomylitis. At the end of 6 weeks pt developed PICC line infection and continued to have Osteomylitis. He had his 6 weeks of vanc extended to another 6 weeks and PICC line was replaced. Pt came back again at the end of 6 weeks with another PICC line infection and osteomylitis. -On IV vanc and meropenum -Culture wound + for Enterobacter to sensitive Meropenum in Wound and pseudomonos in PICC line sensitive to Meropenum. -Surgery Consulted. Appreciated Reccs -medical mgmt.. -ID consulted. Appreciated Reccs. -LTAC for 6 weeks of meropenum with wound care. -Wound care for Ulcers in hospital -PICC line removed. Will replace. Dispo: Pt will benefit from close monitoring of his wound at a LTAC for another 6 weeks with meropenum and Wound care. In addition Pt's line infection rate can be decreased with daily care of PICC line at the LTAC facility as well. Pt will greatly benefit from LTAC at this time. Qualifiers: Sepsis type: sepsis due to unspecified organism Qualified Code(s): A41.9 - Sepsis, unspecified organism (2) Osteomyelitis Onset Date: 08/25/17 Current Visit: Yes Status: Chronic Plan: Osteomylitis of the BL foot -MRI with osteomylitis -Continue IV abx. (3) Diabetic ulcer of left great toe Onset Date: 08/25/17 Current Visit: Yes Status: Chronic (4) Diabetic ulcer of right great toe Onset Date: 08/25/17 Current Visit: Yes Status: Chronic (5) Diabetes mellitus type 2 Onset Date: 08/25/17 Current Visit: Yes Status: Chronic (6) Essential hypertension Onset Date: 08/25/17 Current Visit: Yes Status: Chronic (7) KINGS (acute kidney injury) Onset Date: 08/25/17 Current Visit: Yes Status: Acute Plan: Most Likely 2/2 to dehydration vs IV Vanc. -IV fluids at this time.
[2017-08-28] MEDS: ACETAMINOPHEN 500 MG TAB PO PRN (13:52)
[2017-08-28] MEDS: TRAMADOL HCL 50 MG TAB PO PRN (18:09)
[2017-08-28] MEDS: ATORVASTATIN 10 MG TAB PO SCH (21:20)
--- NOTE | 2017-08-28 21:26 | RAD REPORT ---
EXAM DESCRIPTION: RAD - Knee Right 2 View - 08/28/2017 8:11 pm CLINICAL HISTORY: Right knee pain FINDINGS: No fracture or dislocation is seen. Marked osteoarthritis involves the patellofemoral and medial compartments consisting of joint space n arrowing and osteophytes. A moderate joint effusion is seen with several loose bodies.
[2017-08-29] MEDS: Meropenem 1,000 MG in NA CHLORIDE 0.9% 100 ML IV SCH ×3 (00:36→17:02)
[2017-08-29] MEDS: TRAMADOL HCL 50 MG TAB PO PRN ×3 (00:37→22:35)
[2017-08-29 05:35] LABS: Absolute Lymphocytes (CBC) 1.8 K/uL (0.7-4.9); Absolute Neutrophil 4.5 K/uL (1.8-8.0); Basophils % 0.8 % (0-1.3); Eosinophils % 3.4 % (0-4.4); Hematocrit 34.7 % (39.6-49.0); MCH 28.1 pg (27.0-35.0); MCV 84.1 fL (80-100); MPV 10.9 fL (7.6-11.3); Monocytes % 13.6 % (3.3-12.3); RBC Red Blood Cell Count 4.13 M/uL (4.33-5.43)
[2017-08-29 05:59] LABS: Albumin 3.2 g/dL (3.2-5.5); Bilirubin Total 0.7 mg/dL (0.3-1.2); Potassium 4.4 mEq/L (3.6-5.0); Protein, Total 6.8 g/dL (6.0-8.3)
[2017-08-29] MEDS: INSULIN -REGULAR HUMAN 50 UNIT/0.5 ML ML SQ SCH ×4 (07:30→21:00)
[2017-08-29] MEDS: hydroCHLOROthiazide 25 MG TAB PO SCH (09:49)
[2017-08-29] MEDS: ALLOPURINOL 100 MG TAB PO SCH (09:50)
[2017-08-29] MEDS: AMLODIPINE 10 MG TAB PO SCH (09:50)
[2017-08-29] MEDS: VALSARTAN 160 MG TAB PO SCH (09:50)
[2017-08-29] MEDS: ENOXAPARIN 40 MG/0.4 ML SQ SCH (09:51)
[2017-08-29] MEDS: MORPHINE 2 MG/ML SYR IV PRN ×2 (10:39→17:02)
--- NOTE | 2017-08-29 12:15 | P.PN ---
Subjective Date of Service: 08/29/17 Primary Care Provider: Dr Jc - Surgery Chief Complaint: Fever Patient seen and examined at bedside with RN. Chart reviewed. Case discussed with general surgery and ID at this time. Patient is growing Enterobacter in the wound and Pseudomonos in the blood and the catheter tip. Review of Systems 10-point ROS is otherwise unremarkable Physical Examination - Vital Signs Temperature: 98.4 F Blood Pressure: 114/68 Pulse: 89 Respirations: 18 Pulse Ox (%): 94 - Physical Exam General: Alert, In no apparent distress, Oriented x3 HEENT: Atraumatic, PERRLA, EOMI Neck: Supple, JVD not distended Respiratory: Clear to auscultation bilaterally, Normal air movement Cardiovascular: Regular rate/rhythm, Normal S1 S2 Gastrointestinal: Normal bowel sounds, No tenderness Musculoskeletal: Tenderness Integumentary: No rashes Neurological: Normal speech, Normal tone, Normal affect Lymphatics: No axilla or inguinal lymphadenopathy - Studies Medications List Reviewed: Yes Assessment & Plan - Problems (Diagnosis) (1) Sepsis Onset Date: 08/25/17 Current Visit: Yes Status: Acute Plan: Sepsis Most likely 2.2 to PICC line infection and Osteomylitis. Pt has been on IV vanc for total of 12 weeks prior to this hospitalization. Last hospital visit he was sent to [facility] for 6 weeks of IV van for osteomylitis. At the end of 6 weeks pt developed PICC line infection and continued to have Osteomylitis. He had his 6 weeks of vanc extended to another 6 weeks and PICC line was replaced. Pt came back again at the end of 6 weeks with another PICC line infection and osteomylitis. -On IV vanc and meropenum -Culture wound + for Enterobacter to sensitive Meropenum in Wound and pseudomonos in PICC line sensitive to Meropenum. -Surgery Consulted. Appreciated Reccs -medical mgmt.. -ID consulted. Appreciated Reccs. -LTAC for 6 weeks of meropenum with wound care. -Wound care for Ulcers in hospital -PICC line removed. Will replace. Dispo: Pt will benefit from close monitoring of his wound at a LTAC for another 6 weeks with meropenum and Wound care. In addition Pt's line infection rate can be decreased with daily care of PICC line at the LTAC facility as well. Pt will greatly benefit from LTAC at this time. Qualifiers: Sepsis type: sepsis due to unspecified organism Qualified Code(s): A41.9 - Sepsis, unspecified organism (2) Osteomyelitis Onset Date: 08/25/17 Current Visit: Yes Status: Chronic Plan: Osteomylitis of the BL foot -MRI with osteomylitis -Continue IV abx. (3) Diabetic ulcer of left great toe Onset Date: 08/25/17 Current Visit: Yes Status: Chronic (4) Diabetic ulcer of right great toe Onset Date: 08/25/17 Current Visit: Yes Status: Chronic (5) Diabetes mellitus type 2 Onset Date: 08/25/17 Current Visit: Yes Status: Chronic (6) Essential hypertension Onset Date: 08/25/17 Current Visit: Yes Status: Chronic (7) KINGS (acute kidney injury) Onset Date: 08/25/17 Current Visit: Yes Status: Acute Plan: Most Likely 2/2 to dehydration vs IV Vanc. -IV fluids at this time. (8) Gout attack Current Visit: Yes Status: Acute Plan: Acute Flare up of gout. -Knee xray with effusion and loose bodies. -Will get Joint aspiration done if worse -Prednisone for acute attack Qualifiers: Gout site: knee Gout etiology: unspecified cause Laterality: right Qualified Code(s): M10.9 - Gout, unspecified Discharge Plan: Home Plan to discharge in: 24 Hours - Code Status/Comfort Care Code Status Assessed: No Critical Care: No
[2017-08-29] MEDS: predniSONE 20 MG TAB PO SCH ×2 (15:03→15:04)
[2017-08-29] MEDS: COLLAGENASE 30 GM OINTMENT TOP SCH (22:00)
[2017-08-29] MEDS: ATORVASTATIN 10 MG TAB PO SCH (22:01)
[2017-08-30] MEDS: Meropenem 1,000 MG in NA CHLORIDE 0.9% 100 ML IV SCH ×3 (00:59→18:32)
[2017-08-30] MEDS: MORPHINE 2 MG/ML SYR IV PRN (02:05)
[2017-08-30 06:10] LABS: Absolute Lymphocytes (CBC) 1.5 K/uL (0.7-4.9); Absolute Monocytes 1.1 K/uL (0.1-1.3); Absolute Neutrophil 6.2 K/uL (1.8-8.0); Basophils % 0.7 % (0-1.3); Eosinophils % 0.3 % (0-4.4); Hematocrit 33.7 % (39.6-49.0); Lymphocytes % 16.6 % (15.3-44.8); MCH 28.3 pg (27.0-35.0); MCV 84.8 fL (80-100); MPV 10.1 fL (7.6-11.3); Monocytes % 12.6 % (3.3-12.3); RBC Red Blood Cell Count 3.98 M/uL (4.33-5.43)
[2017-08-30 06:44] LABS: Potassium 4.7 mEq/L (3.6-5.0); Protein, Total 6.6 g/dL (6.0-8.3)
[2017-08-30 06:51] LABS: Bilirubin Total 0.8 mg/dL (0.3-1.2)
[2017-08-30] MEDS: INSULIN -REGULAR HUMAN 50 UNIT/0.5 ML ML SQ SCH ×4 (07:30→21:00)
[2017-08-30] MEDS: COLLAGENASE 30 GM OINTMENT TOP SCH ×2 (09:00→22:05)
[2017-08-30] MEDS: VALSARTAN 160 MG TAB PO SCH (09:00)
[2017-08-30] MEDS: ENOXAPARIN 40 MG/0.4 ML SQ SCH (10:21)
[2017-08-30] MEDS: AMLODIPINE 10 MG TAB PO SCH (10:22)
[2017-08-30] MEDS: hydroCHLOROthiazide 25 MG TAB PO SCH (10:22)
[2017-08-30] MEDS: ALLOPURINOL 100 MG TAB PO SCH (10:23)
[2017-08-30] MEDS: predniSONE 20 MG TAB PO SCH (10:23)
[2017-08-30] MEDS: TRAMADOL HCL 50 MG TAB PO PRN ×2 (14:49→22:03)
--- NOTE | 2017-08-30 18:13 | P.PN ---
Subjective Date of Service: 08/30/17 Primary Care Provider: Dr Jc - Surgery Chief Complaint: Fever Patient seen and examined at bedside with RN. Chart reviewed. Case discussed with general surgery and ID at this time. Patient is growing Enterobacter in the wound and Pseudomonos in the blood and the catheter tip. Review of Systems 10-point ROS is otherwise unremarkable Physical Examination - Vital Signs Temperature: 97.8 F Blood Pressure: 115/74 Pulse: 86 Respirations: 18 Pulse Ox (%): 96 - Physical Exam General: Alert, In no apparent distress, Oriented x3 HEENT: Atraumatic, PERRLA, EOMI Neck: Supple, JVD not distended Respiratory: Clear to auscultation bilaterally, Normal air movement Cardiovascular: Regular rate/rhythm, Normal S1 S2 Gastrointestinal: Normal bowel sounds, No tenderness Musculoskeletal: No tenderness Integumentary: No rashes Neurological: Normal speech, Normal tone, Normal affect Lymphatics: No axilla or inguinal lymphadenopathy - Studies Microbiology Data (last 24 hrs): 08/24/17 17:32 Blood - Other Aerobic Blood Culture - Final No growth in 5 days. 08/24/17 17:32 Blood - Other Anaerobic Blood Culture - Final No growth in 5 days. 08/24/17 14:45 Blood - Other Aerobic Blood Culture - Final No growth in 5 days. 08/24/17 14:45 Blood - Other Anaerobic Blood Culture - Final No growth in 5 days. Medications List Reviewed: Yes Assessment & Plan - Problems (Diagnosis) (1) Sepsis Onset Date: 08/25/17 Current Visit: Yes Status: Acute Plan: Sepsis Most likely 2.2 to PICC line infection and Osteomylitis. Pt has been on IV vanc for total of 12 weeks prior to this hospitalization. Last hospital visit he was sent to [facility] for 6 weeks of IV van for osteomylitis. At the end of 6 weeks pt developed PICC line infection and continued to have Osteomylitis. He had his 6 weeks of vanc extended to another 6 weeks and PICC line was replaced. Pt came back again at the end of 6 weeks with another PICC line infection and osteomylitis. -On IV vanc and meropenum -Culture wound + for Enterobacter to sensitive Meropenum in Wound and pseudomonos in PICC line sensitive to Meropenum. -Surgery Consulted. Appreciated Reccs -medical mgmt.. -ID consulted. Appreciated Reccs. -LTAC for 6 weeks of meropenum with wound care. -Wound care for Ulcers in hospital -PICC line removed. Will replace. Dispo: Pt will benefit from close monitoring of his wound at a LTAC for another 6 weeks with meropenum and Wound care. In addition Pt's line infection rate can be decreased with daily care of PICC line at the LTAC facility as well. Pt will greatly benefit from LTAC at this time. Qualifiers: Sepsis type: sepsis due to unspecified organism Qualified Code(s): A41.9 - Sepsis, unspecified organism (2) Osteomyelitis Onset Date: 08/25/17 Current Visit: Yes Status: Chronic Plan: Osteomylitis of the BL foot -MRI with osteomylitis -Continue IV abx. (3) Diabetic ulcer of left great toe Onset Date: 08/25/17 Current Visit: Yes Status: Chronic (4) Diabetic ulcer of right great toe Onset Date: 08/25/17 Current Visit: Yes Status: Chronic (5) Diabetes mellitus type 2 Onset Date: 08/25/17 Current Visit: Yes Status: Chronic (6) Essential hypertension Onset Date: 08/25/17 Current Visit: Yes Status: Chronic (7) KINGS (acute kidney injury) Onset Date: 08/25/17 Current Visit: Yes Status: Acute Plan: Most Likely 2/2 to dehydration vs IV Vanc. -IV fluids at this time. (8) Gout attack Current Visit: Yes Status: Acute Plan: Acute Flare up of gout. -Knee xray with effusion and loose bodies. -Will get Joint aspiration done if worse -Prednisone for acute attack Qualifiers: Gout site: knee Gout etiology: unspecified cause Laterality: right Qualified Code(s): M10.9 - Gout, unspecified
[2017-08-30] MEDS: ATORVASTATIN 10 MG TAB PO SCH (22:02)
[2017-08-31] MEDS: Meropenem 1,000 MG in NA CHLORIDE 0.9% 100 ML IV SCH ×3 (01:37→17:00)
[2017-08-31 06:40] LABS: Absolute Lymphocytes (CBC) 2.2 K/uL (0.7-4.9); Absolute Neutrophil 5.7 K/uL (1.8-8.0); Basophils % 0.6 % (0-1.3); Eosinophils % 0.6 % (0-4.4); Hematocrit 33.1 % (39.6-49.0); Lymphocytes % 24.3 % (15.3-44.8); MCV 84.6 fL (80-100); MPV 11.3 fL (7.6-11.3); Monocytes % 11.5 % (3.3-12.3); RBC Red Blood Cell Count 3.91 M/uL (4.33-5.43)
[2017-08-31 06:41] VITALS: BMI 33.8
[2017-08-31 07:08] LABS: Potassium 4.5 mEq/L (3.6-5.0); Protein, Total 6.5 g/dL (6.0-8.3)
[2017-08-31 07:10] LABS: Bilirubin Total 0.8 mg/dL (0.3-1.2)
[2017-08-31] MEDS: INSULIN -REGULAR HUMAN 50 UNIT/0.5 ML ML SQ SCH ×3 (07:30→16:30)
[2017-08-31] MEDS: predniSONE 20 MG TAB PO SCH (09:32)
[2017-08-31] MEDS: hydroCHLOROthiazide 25 MG TAB PO SCH (09:32)
[2017-08-31] MEDS: AMLODIPINE 10 MG TAB PO SCH (09:33)
[2017-08-31] MEDS: ALLOPURINOL 100 MG TAB PO SCH (09:33)
[2017-08-31] MEDS: ENOXAPARIN 40 MG/0.4 ML SQ SCH (09:34)
[2017-08-31] MEDS: VALSARTAN 160 MG TAB PO SCH (09:38)
[2017-08-31] MEDS: COLLAGENASE 30 GM OINTMENT TOP SCH (15:19)
[2017-08-31 15:37] VITALS: BP 127/79; TEMP 97.7
--- NOTE | 2017-08-31 17:03 | P.DS ---
Admission Date: 08/24/17 Discharge Date: 08/31/17 Primary Care Provider: Dr Jc - Surgery Disposition: ROUTINE DISCHARGE Discharge Condition: GOOD Reason for Admission: Fever Consultations: ID - Problems (1) Sepsis Onset Date: 08/25/17 Current Visit: Yes Status: Acute Qualifiers: Sepsis type: sepsis due to unspecified organism Qualified Code(s): A41.9 - Sepsis, unspecified organism (2) Osteomyelitis Onset Date: 08/25/17 Current Visit: Yes Status: Chronic (3) Diabetic ulcer of left great toe Onset Date: 08/25/17 Current Visit: Yes Status: Chronic (4) Diabetic ulcer of right great toe Onset Date: 08/25/17 Current Visit: Yes Status: Chronic (5) Diabetes mellitus type 2 Onset Date: 08/25/17 Current Visit: Yes Status: Chronic (6) Essential hypertension Onset Date: 08/25/17 Current Visit: Yes Status: Chronic (7) KINGS (acute kidney injury) Onset Date: 08/25/17 Current Visit: Yes Status: Acute (8) Gout attack Current Visit: Yes Status: Acute Qualifiers: Gout site: knee Gout etiology: unspecified cause Laterality: right Qualified Code(s): M10.9 - Gout, unspecified Brief History of Present Illness: This is a 61-year-old male with significant past medical history of diabetes, high blood pressure, cholesterol, chronic diabetic foot ulcers who presented to the ED complaining of having some fever and chills at home. Patient stated that [facility] was [facility] when he was told that he needs to go get an MRI of his foot but started feeling unwell and thus decided to come to the ER. In the ER patient was found to have a fever and tachycardia and thus was referred for an admission for sepsis workup. Patient states that at home he has been having fever noted temperature of 101.6. Of note patient has been on IV vancomycin for osteomylitis for total of 12 weeks. Initially he was at [facility] for 6 weeks and then was discharged home with another 6 weeks of IV antibiotics. Patient has been having some coughing as well along with phlegm production which is clear in color. Aside from fever and chills patient does not have any other associated symptoms at this time. Hospital Course: Overall during the hospital stay patient remained stable Patient was admitted to the hospital initially for sepsis most likely secondary to PICC line infection. Patient has chronic Osteomylitis of the left tow and has been on 12 weeks of Vancomycin for that. Initially he was discharged with the [facility] for 6 weeks of antibiotics and then home to get rest of the 6 weeks of antibiotics with wound care. However patient came back in the ER with sepsis secondary to PICC line infection and still continued to have osteomyelitis of the toe. at that time patient was switched over to IV meropenem since he grew Pseudomonas in his wound. A long-term acute care facility was consulted for failed outpt Therapy and repeated line infection. Patient was transferred to [facility] for long-term IV antibiotics along with wound care. Vital Signs/Physical Exam: Temp Pulse Resp BP Pulse Ox 97.7 F 85 20 127/79 95 08/31/17 15:36 08/31/17 15:36 08/31/17 15:36 08/31/17 15:36 08/31/17 15:36 General: Alert, In no apparent distress, Oriented x3 HEENT: Atraumatic, PERRLA, EOMI Neck: Supple, JVD not distended Respiratory: Clear to auscultation bilaterally, Normal air movement Cardiovascular: Regular rate/rhythm, Normal S1 S2 Gastrointestinal: Normal bowel sounds, No tenderness Musculoskeletal: No tenderness Integumentary: No rashes Neurological: Normal speech, Normal tone, Normal affect Lymphatics: No axilla or inguinal lymphadenopathy Laboratory Data at Discharge: WBC 9.0 K/uL (4.3-10.9) 08/31/17 05:42 Hgb 11.0 g/dL (13.6-17.9) L 08/31/17 05:42 Hct 33.1 % (39.6-49.0) L 08/31/17 05:42 Plt Count 307 K/uL (152-406) 08/31/17 05:42 PT 12.4 SECONDS (9.5-12.5) 08/24/17 14:45 INR 1.05 08/24/17 14:45 APTT 25.6 SECONDS (24.3-36.9) 08/24/17 14:45 Sodium 134 mEq/L (135-145) L 08/31/17 05:42 Potassium 4.5 mEq/L (3.6-5.0) 08/31/17 05:42 BUN 35 mg/dL (6-20) H 08/31/17 05:42 Creatinine 1.18 mg/dL (0.61-1.24) 08/31/17 05:42 Glucose 98 mg/dL (65-120) 08/31/17 05:42 Uric Acid 6.6 mg/dL (4.8-8.7) 08/29/17 13:43 Phosphorus 4.6 mg/dL (2.5-4.3) H 08/27/17 04:25 Magnesium 1.9 mg/dL (1.8-2.5) 08/27/17 04:25 Total Bilirubin 0.8 mg/dL (0.3-1.2) 08/31/17 05:42 AST 36 IU/L (10-42) 08/31/17 05:42 ALT 31 IU/L (10-60) 08/31/17 05:42 Alkaline Phosphatase 66 IU/L (42-121) 08/31/17 05:42 B-Natriuretic Peptide 44 pg/ml (<=100) 08/24/17 14:45 Lipase 28 U/L (22-51) 08/24/17 14:45 Home Medications: Metformin HCl [Glucophage*] 2 tab PO BID 08/03/13 Allopurinol [Zyloprim*] 1 tab PO DAILY 04/19/15 Amlodipine/Valsartan [Exforge 10-320 mg Tablet] 1 tab PO DAILY 04/19/15 Atorvastatin Calcium [Lipitor*] 1 tab PO BEDTIME 04/19/15 Hydrochlorothiazide 1 tab PO DAILY 08/24/17 Meropenem [Merrem*] 1 gm IV Q8H #28 vial 08/31/17 New Medications: Meropenem [Merrem*] 1 gm IV Q8H #28 vial Diet: Regular Activity: Ad scott Followup: Sancho Pathak MD [ACTIVE - CAN ADMIT] - 1-2 Weeks Nicolas Jc MD [Primary Care Provider] - 1-2 Weeks
--- NOTE | 2017-08-31 17:31 | CON ---
History Of Present Illness: The patient is here with right foot diabetic foot ulcer and osteomyeliti s of first proximal and distal phalanx. The patient has significant history of diabetes mellitus, hy pertension, hypercholesterolemia, coming in for PICC line sepsis, which was removed. The patient was getting antibiotic for right foot osteomyelitis. Left foot MRI also showed the patient has osteomye litis of the first proximal phalanx and an ulceration noted at the plantar surface, which has been de brided by surgical team. Past Medical History: As per HPI. Social History: Nonsmoker, nondrinker. Medications: Meropenem. See MARs for other medication. Allergies: TEGADERM. Review of Systems: A 10-point review was performed. Physical Examination: General: This is a 61-year-old male, lying in bed, not in any acute cardiopulmonary distress. Vital Signs: Temperature 98, pulse 80, respirations 17, blood pressure 104/70. HEENT: Unremarkable. Neck: Supple. Lungs: Basal crackles. Heart: S1, S2. Regular. Abdomen: Soft, nontender. Bowel sounds positive. Extremity: Trace edema. Laboratory Data: Shows WBC 9 down from 11,000, hemoglobin 11, platelets are 307. Chemistry shows so dium 134, potassium 4.5, chloride 101, bicarb 25. BUN 35, creatinine 1.1, glucose 98. Microbiology Data: The patient has Pseudomonas aeruginosa in his catheter tip with bacteremia and di abetic foot ulcer of the left side, osteomyelitis of both feet. Assessment And Plan: Bacteremia secondary to Pseudomonas aeruginosa into left foot diabetic foot ulc er with osteomyelitis and left foot and right foot first metatarsal and phalanx area. Continue IV an tibiotic for 6 weeks. We will follow the patient closely. Thank you Dr. Leonard for consult. NF/MODL Voice ID: [id number] Report ID: [id number]
[2017-08-31] MEDS ORDERED: GLUCAGON 1 MG/VIAL IM PRN (18:01)
[2017-08-31] MEDS ORDERED: D50W 25 GM/50 ML SYRINGE IV PRN (18:01)
[2017-08-31 19:54] VITALS: O2SAT 95
== END 2017-08-31 20:49 | DRG 314 ==
LOC: ER 15:52 → ERHOLD 21:41 → 4TH 22:20
PROVIDERS: ADMIT Family Medicine; ATTEND Family Medicine
DX: T80.211A Bloodstream infection due to central venous catheter, initial encounter (principal); A41.52 Sepsis due to Pseudomonas; M86.672 Other chronic osteomyelitis, left ankle and foot; N17.9 Acute kidney failure, unspecified; B96.89 Other specified bacterial agents as the cause of diseases classified elsewhere; E11.621 Type 2 diabetes mellitus with foot ulcer; L97.529 Non-pressure chronic ulcer of other part of left foot with unspecified severity; L97.519 Non-pressure chronic ulcer of other part of right foot with unspecified severity; I10 Essential (primary) hypertension; M10.9 Gout, unspecified
CPT/HCPCS: 36415; 71045; 80048; 80053; 80076; 80202; 81003; 82962; 83605; 83690; 83735; 83880; 84100; 84145; 84484; 84550; 85025; 85610; 85652; 85730; 86140; 87040; 87070; 87077; 87186; 87205; 93005; 96365; 99285; J1650; J2270; J2543; J3370; J3475; J3590; J7030; J7512